=== PATIENT | male | born 1985 | race Caucasian/White ===

== ENCOUNTER 2017-11-10 16:18 | Emergency (ER) | payer OTHER ==
[~2017-11-10] VITALS: Ht 180.3 cm; Wt 110.7 kg
[~2017-11-10 16:18] MED LIST: FLON0.053; KETO2AER3 TOP; KETO2SHA5 TOP; KETOC200 PO
[2017-11-10 16:20] VITALS: BP 143/83; PULSE 77; RESP 16; TEMP 98.2; O2SAT 100
--- NOTE | 2017-11-10 16:54 | PD ---
HPI Chief Complaint: Cardiac Complaint Time Seen by Provider: 16:29 Travel History International Travel<30 days: No Contact w/Intl Traveler<30days: No Traveled to known affect area: No History of Present Illness HPI 32-year-old male came to the emergency room with history of discomfort in the center of his chest that goes from the epigastric all the way up to his throat. Patient says that he has been having these feelings for past 2 weeks intermittently that seems to be brought upon after he drinks alcohol at night and then next day when he smokes cigarettes. Patient used to drink a lot but about 2-3 months ago has cut down on drinking alcohol. However last night he drank 12 beers and 3 shots of hard liquor. This morning when he woke up and started to smoke cigarettes he started the same feeling. This is associated with some wooziness and sensation. No history of significant chest pain per se. He has been going to the gym for past 2 months and working out. He had a full physical checkup one year ago which was within normal limits. Patient is a smoker. He does not have a family history of heart attack in young members of the family. [facility] Past Medical History Narrative Medical List of his past medical, surgical, social and family history is reviewed from the nursing note. Hx Anticoagulant Therapy: No Diabetes: No Diminished Hearing: No Immunizations Current: Yes Tetanus Vaccination: > 5 Years Influenza Vaccination: No Past Surgical History Oral Surgery: Yes (wisdom teeth removed 2003) Other Surgery: Yes (WISDOM TEETH REMOVED IN 2003) Social History Alcohol Use: Yes (at least a 4pk 5 days a wk) Tobacco Use: Yes (1 ppd) Substance Use: No Allergies-Medications (Allergen,Severity, Reaction): Coded Allergies: codeine (Unverified Allergy, Severe, 11/10/17) Sulfa (Sulfonamide Antibiotics) (Unverified Allergy, Mild, 11/10/17) amoxicillin (Unverified Allergy, Mild, STOMACH PAINS, 11/10/17) clavulanic acid (Unverified Allergy, Mild, STOMACH PAINS, 11/10/17) Comments List of his allergies reviewed from the nursing note. Reported Meds & Prescriptions Reported Meds & Active Scripts Active Protonix (Pantoprazole Sodium) 20 Mg Tab 20 Mg PO DAILY Narrative Medication List of his home medications reviewed from the nursing note. Review of Systems Except as stated in HPI: all other systems reviewed are Neg Cardiovascular: Positive: Chest Pain or Discomfort, Palpitations Physical Exam Narrative GENERAL: Awake, alert, obese, no obvious distress SKIN: Focused skin assessment warm/dry. HEAD: Atraumatic. Normocephalic. EYES: Pupils equal and round. No scleral icterus. No injection or drainage. ENT: No nasal bleeding or discharge. Dry mucous membrane NECK: Trachea midline. No JVD. CARDIOVASCULAR: Regular rate and rhythm. No murmur appreciated. RESPIRATORY: No accessory muscle use. Clear to auscultation. Breath sounds equal bilaterally. GASTROINTESTINAL: Abdomen soft, non-tender, nondistended. Hepatic and splenic margins not palpable. MUSCULOSKELETAL: No obvious deformities. No clubbing. No cyanosis. No edema. NEUROLOGICAL: Awake and alert. No obvious cranial nerve deficits. Motor grossly within normal limits. Normal speech. PSYCHIATRIC: Appropriate mood and affect; insight and judgment normal. Data Data Last Documented VS Orders Orders Electrocardiogram (11/10/17 17:04) Basic Metabolic Panel (Bmp) (11/10/17 17:04) Ckmb (Isoenzyme) Profile (11/10/17 17:04) Complete Blood Count With Diff (11/10/17 17:04) Magnesium (Mg) (11/10/17 17:04) Prothrombin Time / Inr (Pt) (11/10/17 17:04) Act Partial Throm Time (Ptt) (11/10/17 17:04) Troponin I (11/10/17 17:04) Chest, Single Ap (11/10/17 17:04) Ecg Monitoring (11/10/17 17:04) Bilateral Bp Monitoring (11/10/17 17:04) Iv Access Insert/Monitor (11/10/17 17:04) Oximetry (11/10/17 17:04) Oxygen Administration (11/10/17 17:04) Sodium Chloride 0.9% Flush (Ns Flush) (11/10/17 17:15) Orthostatic Vital Signs (11/10/17 17:04) Pantoprazole Inj (Protonix Inj) (11/10/17 17:15) Drug Screen, Random Urine (11/10/17 17:05) CKMB (11/10/17 17:25) CKMB% (11/10/17 17:25) Sodium Chlor 0.9% 1000 Ml Inj (Ns 1000 M (11/10/17 18:00) Ed Discharge Order (11/10/17 18:20) Labs Laboratory Tests Test 11/10/17 17:25 White Blood Count 10.4 TH/MM3 Red Blood Count 5.20 MIL/MM3 Hemoglobin 15.8 GM/DL Hematocrit 47.0 % Mean Corpuscular Volume 90.3 FL Mean Corpuscular Hemoglobin 30.3 PG Mean Corpuscular Hemoglobin Concent 33.6 % Red Cell Distribution Width 11.9 % Platelet Count 183 TH/MM3 Mean Platelet Volume 9.5 FL Neutrophils (%) (Auto) 73.5 % Lymphocytes (%) (Auto) 18.6 % Monocytes (%) (Auto) 5.8 % Eosinophils (%) (Auto) 0.9 % Basophils (%) (Auto) 1.2 % Neutrophils # (Auto) 7.7 TH/MM3 Lymphocytes # (Auto) 1.9 TH/MM3 Monocytes # (Auto) 0.6 TH/MM3 Eosinophils # (Auto) 0.1 TH/MM3 Basophils # (Auto) 0.1 TH/MM3 CBC Comment AUTO DIFF Differential Comment AUTO DIFF CONFIRMED Prothrombin Time 9.9 SEC Prothromb Time International Ratio 1.0 RATIO Activated Partial Thromboplast Time 26.2 SEC Blood Urea Nitrogen 12 MG/DL Creatinine 0.93 MG/DL Random Glucose 89 MG/DL Calcium Level 9.3 MG/DL Magnesium Level 1.9 MG/DL Sodium Level 138 MEQ/L Potassium Level 4.0 MEQ/L Chloride Level 105 MEQ/L Carbon Dioxide Level 24.6 MEQ/L Anion Gap 8 MEQ/L Estimat Glomerular Filtration Rate 95 ML/MIN Total Creatine Kinase 245 U/L Creatine Kinase MB 1.6 NG/ML Troponin I LESS THAN 0.02 NG/ML Urine Opiates Screen NEG Urine Barbiturates Screen NEG Urine Amphetamines Screen NEG Urine Benzodiazepines Screen NEG Urine Cocaine Screen NEG Urine Cannabinoids Screen NEG MDM Medical Decision Making Medical Screen Exam Complete: Yes Emergency Medical Condition: Yes Medical Record Reviewed: Yes Differential Diagnosis Dehydration, GERD, ACS Narrative Course 6:18 PM orthostatic vital signs were negative. Blood test results of back and within normal limit. Chest x-rays negative. Patient was given IV fluid bolus and IV Protonix. 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 I'm comfortable discharging him home on omeprazole. Procedures EKG Prior to Arrival: No Diagnosis Primary Impression: Atypical chest pain Referrals: Primary Care Physician Additional Instructions: Please return to the ER if condition worsens or any other new concerns. Otherwise follow-up with your primary care for possible GI referral. It would not be a bad idea to get a referral to a neon sign servicer so an outpatient stress test can be done. Med/Other Pt SpecificInfo: Prescription(s) given Scripts Pantoprazole (Protonix) 20 Mg Tab 20 MG PO DAILY for Reflux, #30 TAB 0 Refills Prov: Steven Farrell MD 11/10/17 Disposition: 01 DISCHARGE HOME Condition: Stable Steven Farrell MD Nov 10, 2017 16:54
[2017-11-10] MEDS ORDERED: SODIUM CHLORIDE 0.9% FLUSH 10 ML FLUSH IVF PRN (17:15)
[2017-11-10] MEDS ORDERED: PANTOPRAZOLE SODIUM 40 MG VIAL IV PUSH ONE (17:15)
[2017-11-10 17:36] VITALS: BP_SYST 131; BP_SYST 138; BP_SYST 144; BP_DIAS 63; BP_DIAS 67; BP_DIAS 76; RESP 16; RESP 18
[2017-11-10 17:36] LABS: AUTOMATED NEUTROPHIL # 7.7 TH/MM3 (1.8-7.7); BASOPHIL # 0.1 TH/MM3 (0-0.2); BASOPHIL % 1.2 % (0.0-2.0); EOSINOPHIL # 0.1 TH/MM3 (0-0.4); EOSINOPHIL % 0.9 % (0.0-4.0); HEMOGLOBIN 15.8 GM/DL (13.0-17.0); LYMPH % 18.6 % (9.0-44.0); LYMPHOCYTE # 1.9 TH/MM3 (1.0-4.8); MEAN CELL VOLUME 90.3 FL (80.0-100.0); MEAN CORPUSCULAR HEMOGLOBIN 30.3 PG (27.0-34.0); MEAN CORPUSCULAR HGB CONC 33.6 % (32.0-36.0); MEAN PLATELET VOLUME 9.5 FL (7.0-11.0); MONO % 5.8 % (0.0-8.0); MONOCYTE # 0.6 TH/MM3 (0-0.9); NEUT % 73.5 % (16.0-70.0); PLATELET COUNT 183 TH/MM3 (150-450); RED CELL DISTRIBUTION WIDTH 11.9 % (11.6-17.2); WHITE BLOOD COUNT 10.4 TH/MM3 (4.0-11.0)
[2017-11-10 17:37] VITALS: RESP 18; O2SAT 98
[2017-11-10 17:38] VITALS: BP_SYST 114; BP_SYST 132; BP_DIAS 66; BP_DIAS 74
[2017-11-10 17:44] LABS: CHLORIDE 105 MEQ/L (98-107); SODIUM (NA) 138 MEQ/L (136-145)
[2017-11-10 17:46] LABS: CALCIUM 9.3 MG/DL (8.5-10.1)
[2017-11-10 17:47] LABS: BICARBONATE 24.6 MEQ/L (21.0-32.0); BLOOD UREA NITROGEN 12 MG/DL (7-18); GLUCOSE,RANDOM 89 MG/DL (74-106); MAGNESIUM 1.9 MG/DL (1.5-2.5)
[2017-11-10 17:50] LABS: CREATININE 0.93 MG/DL (0.60-1.30); GLOMERULAR FILTRATION RATE 95 ML/MIN (>89); PROTHROMBIN TIME - PATIENT 9.9 SEC (9.8-11.6)
--- NOTE | 2017-11-10 17:53 | RADRPT ---
EXAM DATE/TIME: 11/10/2017 17:11 [facility] COMPARISON: No previous studies available for comparison. INDICATIONS : Chest discomfort. MEDICAL HISTORY : None. SURGICAL HISTORY : None. ENCOUNTER: Initial ACUITY: 1 day PAIN SCORE: 4/10 LOCATION: Bilateral chest FINDINGS: The lungs are clear without infiltrate, nodule, or mass. There is no appreciable pleural effusion fo r technique. Heart and mediastinum are unremarkable. CONCLUSION: No acute cardiopulmonary disease. Brianne Feng MD on November 10, 2017 at 17:51 Board Certified Radiologist. This report was verified electronically.
[2017-11-10 17:55] LABS: TROPONIN I LESS THAN 0.02 NG/ML (0.02-0.05)
[2017-11-10] MEDS ORDERED: SODIUM CHLOR 0.9% 1000 ML INJ 1,000 ML IV ONE (18:00)
[2017-11-10] MEDS ORDERED: PANT20 PO (18:19)
[2017-11-10 19:22] VITALS: BP 131/61
--- NOTE | 2017-11-11 16:48 | EKG ---
Date Performed: 11/10/2017 Time Performed: 16:27:56 PTAGE: 32 years EKG: Sinus rhythm WITH SINUS ARRHYTHMIA NORMAL ECG NO PREVIOUS TRACING DOCTOR: Myke Camacho Interpretating Date/Time 11/11/2017 16:47:11
== END 2017-11-10 19:24 | disposition home or self-care (01) ==
LOC: PHED 16:18
DX: R07.89 Other chest pain (principal); R42 Dizziness and giddiness; R00.2 Palpitations; I49.9 Cardiac arrhythmia, unspecified; F17.200 Nicotine dependence, unspecified, uncomplicated; Z79.899 Other long term (current) drug therapy
CPT/HCPCS: 71045; 80048; 80307; 82550; 82552; 83735; 84484; 85025; 85610; 85730; 93005; 96361; 96374; 99285; C9113; J7030